=== PATIENT | male | born 1960 | race Caucasian/White ===

== ENCOUNTER 2018-06-26 09:46 | Inpatient (IN) | payer SELFPAY ==
[~2018-06-26] VITALS: Ht 188 cm; Wt 111.9 kg
[2018-06-26 10:05] LABS: Chloride (POC) 100 mmol/L (98-108); Creatinine (POC) 1.5 mg/dL (0.8-1.3); Glucose (ISTAT POC) 280 mg/dL (70-99); Potassium (POC) 3.1 mmol/L (3.5-5.5); Sodium (POC) 138 mmol/L (135-148); Total CO2 (POC) 25 mmol/L (21-32)
[2018-06-26 10:15] LABS: PCO2 Arterial 41.5 mmHg (35-45); PO2 Arterial 329 mmHg (80-100); pH Blood Arterial 7.08 (7.35-7.45)
[2018-06-26 11:09] LABS: BASOPHILS ABSOLUTE AUTO 0.06 K/mm3 (0.00-0.23); BASOPHILS PERCENT AUTO 1 % (0-2); EOSINOPHILS ABSOLUTE AUTO 0.09 K/mm3 (0.00-0.68); EOSINOPHILS PERCENT AUTO 1 % (0-6); Hematocrit 45.8 % (37.0-53.0); IMMATURE GRAN ABSOLUTE AUTO 0.31 K/mm3 (0.00-0.10); IMMATURE GRAN PERCENT AUTO 3 % (0-1); LYMPHOCYTES ABSOLUTE AUTO 2.28 K/mm3 (0.84-5.20); LYMPHOCYTES PERCENT AUTO 24 % (21-46); MONOCYTES ABSOLUTE AUTO 0.17 K/mm3 (0.16-1.47); MONOCYTES PERCENT AUTO 2 % (4-13); Mean Corpuscular HGB 30.4 pg (26.0-34.0); Mean Corpuscular HGB Conc 32.8 g/dL (31.5-36.5); Mean Corpuscular Volume 93 fL (80-100); Mean Platelet Volume 9.9 fL (9.1-12.4); NEUTROPHILS ABSOLUTE AUTO 6.68 K/mm3 (1.96-9.15); NEUTROPHILS PERCENT AUTO 70 % (41-73); Platelet Count 196 K/mm3 (150-400); RDW Coefficient Variation 11.8 % (11.7-14.2); RDW Standard Deviation 40.8 fL (35.1-46.3); Red Blood Cell Count 4.93 M/mm3 (4.30-5.90); White Blood Cell Count 9.59 K/mm3 (4.00-11.30)
[2018-06-26 11:29] LABS: Albumin/Globulin Ratio 0.9 (0.8-1.8); Bilirubin, Total 0.6 mg/dL (0.1-1.0); Bun/Creatinine Ratio 11.3 (12.0-20.0); Calcium, Blood 8.6 mg/dL (8.5-10.1); Creatinine, Blood 1.42 mg/dL (0.60-1.20); Globulin, Blood 3.2 g/dL (2.2-4.0); Potassium, Blood 3.4 mmol/L (3.5-5.5); Total Protein, Blood 6.2 g/dL (6.4-8.2); Troponin I 0.487 ng/mL (0.000-0.040)
[2018-06-26 12:21] LABS: International Normalized Ratio 1.05; Prothrombin Time Results 11.1 Sec (9.7-11.5)
--- NOTE | 2018-06-26 12:45 | NUR ---
ADMITTED TO ICU, ROOM 15, VIA GUERNEY; INTUBATED AND ON VENTILATOR. CPR DONE IN FIELD AT LEAST 1/2 HOUR PRIOR TO EMS ARRIVAL; DEFIBRILLATED IN ER X3; PER CODE BLUE PROTOCOLS/ACLS. MONITOR SHOWS IRREG RHYTHM; APPEARS SINUSE BUT MULTIPLE VENTRICULAR ECTOPY WITH EPISODES OF VTACH; SOMETIMES PULSELESS. SEE CODE BLUE SHEET (CALLED AT 1300); DR. STEINBERG PRESENT/ARRIVED; SEE SHEET FOR DETAILS OF MEDS/TX. 500CC FLUID BOLUS (NS) GIVEN AND THEN MAINT IV STARTED AT 75ML/HR. VENT. SETTINGS: A/C ?, TV 500, PEEP 5 AND FIO2 100%. BIOX LOW 70'S TO MID 80'S ON ARRIVAL TO ICU. MONITOR WITH RATE 90'S TO LOW 100'S; PATIENT'S RESP. WITH SEVERE STERNAL RETRACTIONS AND DIFF. TO GET SMOOTHE RHYTHM STRIPS. KEPT. DEFIB PADS IN PLACE FOR PRN USE. STOOL IN BED; CLEANED UP AND REPOSITIONED PATIENT. LUNGS WITH SCATTERED WHEEZES. SEE ER RECORDS, CODE BLUE RECORDS ETC. FOR SPECIFICS. OGT PLACED TO LIS; THICK-BROWN TO GREEN SECRETIONS; FLUSHED WITH 60CC WATER TO THIN OUT SECRETIONS. ACTIVE BOWEL TONES. HYPOTHERMIC BLANKET IN PLACE (HAS THERMAL ARRIAGA) SET TO KEEP BODY TEMP AT 36.0 DEGREES CELCIUS. BILAT. SOFT WRIST RESTRAINTS APPLIED TO PREVENT SELF EXTUBATION.
--- NOTE | 2018-06-26 13:15 | NUR ---
KCL 20MEQ IV HUNG. 1330-PORT. CXRAY DONE FOLLOWED BY EKG THEN ECHOCARDIOGRAM. LAB DRAWS IN BETWEEN ACTIVITY. CONTINUES WITH EPISODES OF VTACH; USUALLY PULSE FELT AND PATIENT CONVERTS ON OWN. OCCASIONALLY REQUIRES 150 SYNC/CARDIOVERSION TO RESUME NORMAL RHYTHM. TO RESTART AMIODARONE GTT AT 1MG/MIN.; SEE ORDERS.
[2018-06-26 13:47] LABS: Bun/Creatinine Ratio 12.3 (12.0-20.0); Calcium, Blood 8.5 mg/dL (8.5-10.1); Creatinine, Blood 1.38 mg/dL (0.60-1.20); Magnesium, Blood 2.3 mg/dL (1.6-2.4); Phosphorus, Blood 3.8 mg/dL (2.5-4.9); Potassium, Blood 3.5 mmol/L (3.5-5.5)
--- NOTE | 2018-06-26 14:10 | NUR ---
DR. STEINBERG INCREASED PATIENTS' EEP TO 8; DIFFICULT GETTING BIOX OVER 71% ON 100% OXYGEN. DR. STEINBERG PLACED L ANTERIOR CHEST TUBE; SEE PROCEDURE NOTE BY PHYSICIAN. PLEUROVAC SECURED TO FLOOR WITH FOAM TAPE. TO WALL SUCTION OF 50.
--- NOTE | 2018-06-26 14:28 | NUR ---
Spiritual care visit conduted. Patient's family is known to this investigative writer. I Received a call from Raymond Fernandes asking me to contact [employer] reinforcing iron and rebar workers and I reached out to family reinforcing iron and rebar workers and he stated that he would come immediately. I entered the ICU area and contacted the family who were sitting outside the patient's room waiting after a code blue was called. I facilitated a debriefing with a few family members to help them talk through the events that led up to patient's arrival at the hospital and learned about family unit complications, about patient's brother being diagnosised with cancer at the same time patient was on his way to the hospital and about family member's that are out of state and trying desperately to arrive here. I listened empathically, provided a calming presence and companionship. I remain available to the family.
[2018-06-26 14:38] LABS: BASOPHILS ABSOLUTE AUTO 0.05 K/mm3 (0.00-0.23); BASOPHILS PERCENT AUTO 0 % (0-2); EOSINOPHILS ABSOLUTE AUTO 0.02 K/mm3 (0.00-0.68); EOSINOPHILS PERCENT AUTO 0 % (0-6); Hematocrit 46.9 % (37.0-53.0); Hemoglobin 15.2 g/dL (13.5-17.5); IMMATURE GRAN ABSOLUTE AUTO 0.24 K/mm3 (0.00-0.10); IMMATURE GRAN PERCENT AUTO 1 % (0-1); LYMPHOCYTES ABSOLUTE AUTO 1.62 K/mm3 (0.84-5.20); LYMPHOCYTES PERCENT AUTO 8 % (21-46); MONOCYTES PERCENT AUTO 5 % (4-13); Mean Corpuscular HGB 30.6 pg (26.0-34.0); Mean Corpuscular HGB Conc 32.4 g/dL (31.5-36.5); Mean Corpuscular Volume 94 fL (80-100); Mean Platelet Volume 10.6 fL (9.1-12.4); NEUTROPHILS ABSOLUTE AUTO 16.77 K/mm3 (1.96-9.15); NEUTROPHILS PERCENT AUTO 86 % (41-73); Platelet Count 279 K/mm3 (150-400); RDW Standard Deviation 41.6 fL (35.1-46.3); Red Blood Cell Count 4.97 M/mm3 (4.30-5.90)
[2018-06-26 14:55] LABS: PCO2 Arterial 52.4 mmHg (35-45); PO2 Arterial 52.1 mmHg (80-100); pH Blood Arterial 7.14 (7.35-7.45)
[2018-06-26 15:12] LABS: International Normalized Ratio 1.21; Prothrombin Time Results 12.6 Sec (9.7-11.5)
[2018-06-26 16:23] LABS: PO2 Arterial 61.1 mmHg (80-100); pH Blood Arterial 7.16 (7.35-7.45)
[2018-06-26 18:11] LABS: Alanine Aminotransfer (ALT/SGP 68 U/L (12-78); Albumin, Blood 1.9 g/dL (3.4-5.0); Alk Phos 73 U/L (50-136); Anion Gap 10 mmol/L (6-16); Aspartate Aminotrans (AST/SGOT 122 U/L (12-37); Bilirubin, Total 0.6 mg/dL (0.1-1.0); Blood Urea Nitrogen 16 mg/dL (8-24); Bun/Creatinine Ratio 18.1 (12.0-20.0); CO2, Blood 14 mmol/L (21-32); Chloride, Blood 125 mmol/L (98-108); Creatinine, Blood 0.88 mg/dL (0.60-1.20); Globulin, Blood 1.9 g/dL (2.2-4.0); Glomerular Filtration Rate >60 (60-); Glucose, Blood 167 mg/dL (70-99); Potassium, Blood 3.5 mmol/L (3.5-5.5); Sodium, Blood 149 mmol/L (136-145)
[2018-06-26 18:15] LABS: Calcium, Blood 5.2 mg/dL (8.5-10.1); Total Protein, Blood 3.8 g/dL (6.4-8.2)
--- NOTE | 2018-06-26 18:45 | NUR ---
SUMMARY: DR. GU CONSULTED; SEE HIS NOTES FOR SPECIFICS. RN HAD GIVEN DILANTIN WELL KEPPRA IVPB'S AROUND 1330 TO 1400 (DR. STEINBERG HAD ORDERED AFTER FAMILY WITNESSED PATIENT SEIZE; RECEIVED 2MG IV ATIVAN, INITIALLY. DR. STEINBERG SPOKE TO DR. GU AND HE HAD HER ORDERER DILANITN AND KEPPRA TO BE GIVEN; HE ARRIVED ABOUT 1800. PUPILS ARE 3-4 (EQUAL) AT PRESENT AND DOLLS EYES WERE NOTED BY PHYSICIAN. PROPOFOL STARTED AT [address] STEINBERG; INITIATED AT 10MCG/KG/MIN.; INCREASED TO 20MCG/KG/MIN AT CHANGE OF SHIFT. DR. STEINBERG TRYING TO REDUCE OXYGEN CONSUMPTION AND RELAX PATIENT MORE. PROTONIX DRIP STARTED WELL 80MG DOSE IVP (SLOWLY). WILL REPORT TO ONCOMING NURSE AND TRANSFER CARE.
--- NOTE | 2018-06-26 19:30 | NUR ---
ASSUMED CARE PT REMAINS INTUBATED ON VENT AC26 VT 400-500S FIO2 100% PEEP 14. GTTS: PROPOFOL 20MCG/KG/MIN, AMIO 1MG/MIN, 0.9NS 75ML/HR, AND PROTONIX 8MG/HR. PT HAS LEFT ANTERIOR CHEST TUBE AND WAS PLACED TO SUCTION -20CM H20.
[2018-06-26 20:07] LABS: Dilantin (Phenytoin), Total 21.3 ug/mL (10.0-20.0)
--- NOTE | 2018-06-26 20:30 | NUR ---
VT PULSATILE VT NOTED ON MONITOR, DEFIB PADS REMAIN IN PLACE. SYNCHRONIZED CARDIOVERSION COMPLETED. STRIP ON CHART. SR RESUMED ON MONITOR. DR STEINBERG HERE AND AWARE.
--- NOTE | 2018-06-26 23:00 | NUR ---
CENTRAL LINE PLACEMENT DR. STEINBERG INSERTED CENTRAL LINE IN LEFT INTERNAL JUGULAR VEIN. DR. STEINBERG CONFIRMED PLACEMENT VIA CXR. LEVOPHED INCREASED TO 2MCG/MIN. SEE ICU FLOW SHEET FOR TITRATIONS AND MAPs.
--- NOTE | 2018-06-27 00:15 | NUR ---
TO CT PT TO CT WITH THIS RN, ORIENTING RN, AND RT.
--- NOTE | 2018-06-27 00:30 | NUR ---
RETURN FROM CT PT RETURNED FROM CT WITHOUT INCIDENT.
--- NOTE | 2018-06-27 02:03 | NUR ---
DR. STEINBERG PUT A CT MARYAN NOTED ADDITIONAL PNEUMOTHORAX. #2 CHEST TUBE INSERTED MEDIAL TO #1. #2 IS PUT TO -20 CM H2O SUCTION, POSITIVE AIR LEAK FOUND. #1 CHEST TUBE TO WATER SEAL.
[2018-06-27] MEDS ORDERED: AMIODARONE HCL100 MG PO (03:27)
[2018-06-27] MEDS ORDERED: LEVSOD150 PO (03:28)
[2018-06-27] MEDS ORDERED: CEFD300 PO (03:29)
[2018-06-27 05:12] LABS: Hematocrit 45.9 % (37.0-53.0); Hemoglobin 14.8 g/dL (13.5-17.5); Mean Corpuscular HGB 30.7 pg (26.0-34.0); Mean Corpuscular HGB Conc 32.2 g/dL (31.5-36.5); Mean Corpuscular Volume 95 fL (80-100); Mean Platelet Volume 10.1 fL (9.1-12.4); Platelet Count 213 K/mm3 (150-400); RDW Coefficient Variation 12.2 % (11.7-14.2); RDW Standard Deviation 42.6 fL (35.1-46.3); Red Blood Cell Count 4.82 M/mm3 (4.30-5.90); White Blood Cell Count 25.72 K/mm3 (4.00-11.30)
[2018-06-27 05:30] LABS: PCO2 Arterial 49.1 mmHg (35-45); PO2 Arterial 79.2 mmHg (80-100)
[2018-06-27 05:36] LABS: Free Thyroxine 0.96 ng/dL (0.70-1.60); Magnesium, Blood 2.2 mg/dL (1.6-2.4)
[2018-06-27 05:40] LABS: BAND PERCENT MAN 12 % (0-8); BASOPHILS PERCENT MAN 0 % (0-2); EOSINOPHILS PERCENT MAN 0 % (0-6); LYMPHOCYTES % ATYPICAL MANUAL 1 % (0-0); LYMPHOCYTES ABSOLUTE MAN 0.77 K/mm3 (0.84-5.20); LYMPHOCYTES PERCENT MAN 2 % (21-46); METAMYELOCYTE ABSOLUTE MAN 0.25 K/mm3 (0.00-0.00); METAMYELOCYTE PERCENT MAN 1 % (0-0); MONOCYTES ABSOLUTE MAN 1.54 K/mm3 (0.16-1.47); MONOCYTES PERCENT MAN 6 % (4-13); NEUTROPHILS ABSOLUTE MAN 23.14 K/mm3 (1.96-9.15); SEG NEUTROPHILS PERCENT MAN 78 % (41-73); TOTAL CELLS COUNTED 100
[2018-06-27 05:44] LABS: Thyroid Stimulating Hormone 0.943 uIU/mL (0.360-4.800); Triiodothyronine, Free 0.73 pg/mL (2.18-3.98)
[2018-06-27 06:24] LABS: pH Blood Arterial 7.03 (7.35-7.45)
--- NOTE | 2018-06-27 06:31 | NUR ---
SHIFT SUMMARY PT REMAINS INTUBATED ON VENT AC 26 VT 400 PEEP 16 FIO2 80%. CURRENT GTTS: AMIO 0.5MG/MIN, NIMBEX 0.5MCG/KG/MIN, PROTONIX 10ML/HR, SODIUM BICARBONATE 50ML/HR, LEVOPHED AT 7MCG/MIN, AND PROPOFOL 10MCG/KG/MIN. MAPs maintained above 65 since the start of Levophed. PT HAS CRITICAL LAB VALUES AT 0530 OF LACTATE 7.1, TROPONIN 16.8, AND PHOSPHORUS 8. NEDITA NOTIFIED. PT IS OLIGURIC WITH UOP OF 110ML, NEDITA AWARE. PT HAD AN EPISODE OF VT WITH PULSE AT 2030 CARDIOVERSION 50J X1 CONVERTED TO NSR. HAD PROBLEMS WITH MANUAL TTM MACHINE; RESORTED TO ICE PACKS AROUND 0620 TO KEEP PT AT GOAL OF 96.8F; CURRENTLY 95.5F. IS ABRIL AND WISHES TO BE INVOLVED IN ALL ASPECTS OF CARE. DAUGHTER'S NAME IS SHON.
[2018-06-27 06:54] LABS: Phosphorus, Blood 8.2 mg/dL (2.5-4.9)
--- NOTE | 2018-06-27 07:20 | NUR ---
ASSUMED CARE OF PATIENT; SEE ASSESSMENT CHARTING FOR DETAILS. FAMILY AT BEDSIDE; VERY SUPPORTIVE AND ATTENTIVE; VERY INQUISITIVE ON ALL CARE BEING GIVEN AND ASKING LOTS OF QUESTIONS ABOUT POC ETC. DR. STEINBERG CAME IN AT THIS TIME AND SPOKE TO SPOUSE AND DAUGHTER AND DISCUSSED POC. PATIENT REMAINS ON VENTILATOR WITH SETTINGS OF: A/C 26, TV 400, PEEP 16 AND FIO2 80%; BIOX. READINGS 99-100%; WILL DISCUSS WITH R.T. RE: TITRATING DOWN FIO2 T/O DAY, AARON. REMAINS WITH 2 ANT/ CHEST TUBES; # 1 TUBE (MORE LATERAL) TO PLEUROVAC SUCTION AND #2 (MORE MEDIAL AND DISTAL) TO PLEUOVAC AND WALL SUCTION; SCANT AMOUNT OF BLOODY DRAINAGE FROM #2 TUBE. NO FURTHER ISSUES WITH FLAIL CHEST BREATHING SINCE NIMBEX DRIP INITIATED LAST PM. PATIENT RIDING ON VENT. SETTINGS. LUNGS COARSE T/O; NO WHEEZES HEARD. ARRIAGA TO GRAVITY AND DRAINING SCANT AMOUNT OF LT. YELLOW URINE; RENAL FUNCTION MUCH REDUCED TODAY; SEE LABS. REMAINS ON BICARB DRIP AT 50ML/HR; PH WAS 7.1 THIS AM. REPEAT VBG AROUND 9 0R 10 AM. OGT CLAMPED; ACTIVE BOWEL TONES. NO FURTHER S/SX'S OF BLEEDING FROM RENAL/GI/ETT/STOOL ETC. H&H GOOD AND PLATELETS >200. SIGNIFICANT SWELLING TO R UPPER AND LOWER ARM/HAND; ELEVATE ON 2-[address]. [address] WHERE WEEPING NOTED. L ARM ALSO SWOLLEN BUT ONLY ABOUT 1+. TRACE BILAT. ANKLE EDEMA. CURRENT IV DRIPS: NIMBEX AT 0.5MG, PROPOFOL AT 10MCG/KG/MIN, AMIODARONE AT 0.5MG, LEVOPHED AT 7MCG/MIN, PROTONIX AT 10ML/HR, AND BICARB DRIP AT 50ML/HR. SCD'S INTACT AND FUNCTIONING.
[2018-06-27 08:26] LABS: Albumin, Blood 3.1 g/dL (3.4-5.0); Albumin/Globulin Ratio 0.9 (0.8-1.8); Bilirubin, Total 1.1 mg/dL (0.1-1.0); Bun/Creatinine Ratio 11.8 (12.0-20.0); Creatinine, Blood 2.79 mg/dL (0.60-1.20); Globulin, Blood 3.3 g/dL (2.2-4.0); Potassium, Blood 4.7 mmol/L (3.5-5.5)
[2018-06-27 08:33] LABS: Calcium, Blood 7.4 mg/dL (8.5-10.1); Total Protein, Blood 6.4 g/dL (6.4-8.2)
[2018-06-27 09:59] LABS: Base Excess Venous -18.7 mmol/L; PCO2 Venous 52.5 mmHg (38-42); PO2 Venous 72.1 mmHg (38-42)
--- NOTE | 2018-06-27 10:00 | NUR ---
VBG RESULTS SHOW PH OF 6.9; RN INFORMED DR. STEINBERG AND SHE GAVE VERBAL ORDER TO CONSULT DR. OVIEDO (NEPHROLOGY).
--- NOTE | 2018-06-27 10:05 | NUR ---
T/C TO DR. OVIEDO WITH CONSULT REQUEST; HE REQUESTED RN PUT PATIENT ON HIS LIST; RN DID INFORM PHYSICIAN THAT PATIENTS' PH 6.9 AND ON BICARB DRIP; NO ORDERS GIVEN.
--- NOTE | 2018-06-27 11:30 | NUR ---
DR. STEINBERG INCREASED A/C TO 34/MIN (WAS UP TO 26); TO HELP WITH PH BALANCE; HAD RN INCREASE BICARB TO 150/HR; SEE FURTHER ORDERS. NO ISSUES WITH ECTOPY; AMIODARONE REMAINS AT 0.5MCG/MIN.
[2018-06-27 12:20] LABS: Source, Urine Catheter
[2018-06-27 12:23] LABS: Bilirubin, Urine Neg (Neg); Blood, Urine 5+ (Neg); Glucose Qualitative, Urine 3+ (Neg); Ketones, Urine Neg (Neg); Leukocyte Esterase, Urine Neg (Neg); Nitrite, Urine Neg (Neg); Protein, Urine 3+ (Neg); Specific Gravity, Urine 1.015 (1.003-1.022); Urobilinogen, Urine NORM (Normal)
[2018-06-27 12:33] LABS: Appearance, Urine Clear (Clear)
[2018-06-27 12:34] LABS: Color, Urine Yellow (P-Yellow)
[2018-06-27 12:35] LABS: Red Blood Cells, Urine TNTC /hpf (0-2); White Blood Cells, Urine 0-2 /hpf (0-5)
[2018-06-27 12:36] LABS: Bacteria Few /hpf; Squamous Epithelial Cells Few /hpf (Few)
[2018-06-27 13:06] LABS: PCO2 Arterial 41.5 mmHg (35-45); PO2 Arterial 82.7 mmHg (80-100); pH Blood Arterial 7.09 (7.35-7.45)
[2018-06-27 13:30] LABS: Anion Gap 18 mmol/L (6-16); Blood Urea Nitrogen 38 mg/dL (8-24); Bun/Creatinine Ratio 11.7 (12.0-20.0); CO2, Blood 16 mmol/L (21-32); Calcium, Blood 7.3 mg/dL (8.5-10.1); Chloride, Blood 103 mmol/L (98-108); Creatinine, Blood 3.25 mg/dL (0.60-1.20); Glomerular Filtration Rate 21 (60-); Glucose, Blood 499 mg/dL (70-99); Sodium, Blood 137 mmol/L (136-145)
--- NOTE | 2018-06-27 13:30 | NUR ---
BICARB DRIP UP TO 250/HR AND 2AMPS BICARB GIVEN IVP; SEE FURTHER ORDERS FROM DR. OVIEDO.
[2018-06-27 13:43] LABS: Phosphorus, Blood 8.1 mg/dL (2.5-4.9)
--- NOTE | 2018-06-27 15:56 | NUR ---
T/C FROM DR. GU INSTRUCTING TO TURN OFF NIMBEX DRIP AND LEVOPHED DRIP SO HE CAN EVAL. NEURO STATUS; DONE. SBP DOWN TO 83/52 AND MAP 60; LEVOPHED DRIP INCREASED TO 4MCG/MIN.
--- NOTE | 2018-06-27 16:15 | NUR ---
DR. GU HERE; NEURO EVAL. DONE; PATIENT OFF SEDATION AND PARALYTIC OVER 20/MIN; NO CORNEAL REFLEX; PUPILS RESPONSIVE.
--- NOTE | 2018-06-27 16:55 | NUR ---
PATIENT OPENING EYES; BLINKING; DR. GU RE-EVAL. AND CORNEAL REFLEX INTACT. DR. STEINBERG WANTS RN TO KEEP NIMBEX AND PROPOFOL DRIPS OFF AND USE PRN.
--- NOTE | 2018-06-27 17:22 | NUR ---
PATIENTS CHEST FLAILING AND BIOX. STARTING TO REDUCE. FENTANYL 50CMG GIVEN IVT AND PROPOFOL DRIP RESTARTED (WENT FROM 15MCG UP TO 50MCG IN ABOUT 40/MIN).
[2018-06-27 17:32] LABS: Base Excess Venous -10.6 mmol/L; Bicarbonate Venous 16.4 mmol/L (24.0-30.0); PO2 Venous 110 mmHg (38-42)
[2018-06-27 17:33] LABS: pH Blood Venous 7.21 (7.34-7.37)
[2018-06-27 18:01] LABS: Albumin, Blood 2.5 g/dL (3.4-5.0); Bilirubin, Total 0.7 mg/dL (0.1-1.0); Bun/Creatinine Ratio 11.1 (12.0-20.0); Calcium, Blood 6.5 mg/dL (8.5-10.1); Creatinine, Blood 3.7 mg/dL (0.60-1.20); Globulin, Blood 2.5 g/dL (2.2-4.0); Potassium, Blood 4.3 mmol/L (3.5-5.5)
--- NOTE | 2018-06-27 18:15 | NUR ---
LABS CALLED TO DR. OVIEDO AND ORDER TO REDUCE NAHCO3 DRIP TO 150/HR; REPEAT LABS AT 2100 (SEE ORDERS). PROPOFOL DRIP REDUCED TO 40MCG/KG/MIN.
--- NOTE | 2018-06-27 18:30 | NUR ---
PROPOFOL DRIP REDUCED TO 30MCG/KG/MIN AND LEVOPHED DRIP UP TO 6MCG/MIN. PATIENT CALMER BUT HYPOTENSIVE.
--- NOTE | 2018-06-27 19:00 | NUR ---
SUMMARY: CURRENT DRIP SETTINGS: NIMBEX OFF, PROTONIX DC'D, AMIODARONE AT 0.5MCG/HR., LEVOPHED UP TO 7MCG/KG/MIN,, BICARB DRIP DOWN TO 150ML/HR. INSULIN DRIP TO START D/T GLUCOSE OVER 500; SEE ORDERS FROM DR. STEINBERG. PATENT EXAMINER TO INITIATE DRIP. RN GAVE 16U REGULAR INSULIN SUBQ FOR HIGH SS COVERAGE ABOUT AN HOUR AGO. URINE OUTPUT < 75ML THIS PAST 12 HRS AND CREAT UP TO 3+; DR. OVIEDO MANAGING PH/KIDNEYS ETC. RENAL U/S DONE AT 1715. VENT SETTINGS: RATE 34, TV 400,PEEP 16 AND FIO2 60%. WILL REPORT TO ONCOMING RN.
--- NOTE | 2018-06-27 19:55 | NUR ---
ASSUMED CARE PT REMAINS INTUBATED ON VENT AC34, PEEP 16, FIO2 60%, VT400. GTTS: AMIO 0.5MG/HR, PROPOFOL 30MCG/MIN, BICARBONATE 150ML/HR, LEVOPHED 10MCG/MIN, AND STARTED INSULIN AT 3UNITS/HR. DISCUSSING TYELNOL ORDER FOR TEMP AND IF NIMBEX OKAY TO USE LATER IF FLAIL CHEST AND DESATURATION OCCURS WITH DR. STEINBERG. PLAN IS TO KEEP PT SEDATED AND RESTED UNTIL SEDATION VECATION IN THE MORNING.
[2018-06-27 20:13] LABS: Glucose, Blood 557 mg/dL (70-99)
[2018-06-27 22:13] LABS: Bun/Creatinine Ratio 10.9 (12.0-20.0); Calcium, Blood 6.4 mg/dL (8.5-10.1); Creatinine, Blood 4.22 mg/dL (0.60-1.20); Potassium, Blood 4.1 mmol/L (3.5-5.5)
--- NOTE | 2018-06-28 01:31 | NUR ---
UPDATE-PT'S EXPRESSING ANXIETY PT'S APPEARS FRUSTRATED WITH CARE AND ASKING IF PT WOULD BENEFIT FROM TRANSPORT TO [place]. WORRIED ABOUT PT'S RENAL FUNCTION AND LOW UOP AND WANTS PT TO HAVE DIALYSIS ALANNA. ABRIL ALSO HAS CONCERNS THAT CARDIOLOGY HAS SIGNED OFF BUT FEELS PT WILL NEED ADDITIONAL CARDIOLOGY FOLLOW UP. DISCUSSED PT STABILITY, OBTAINING AN ACCEPTING PHYSICIAN WITH [facility]. ADVISED HER TO FOLLOW UP WITH DR STEINBERG IN AM TO EXPRESS HER CONCERNS.
[2018-06-28 03:33] LABS: Hematocrit 35.8 % (37.0-53.0); Hemoglobin 12.2 g/dL (13.5-17.5); Mean Corpuscular HGB 30.2 pg (26.0-34.0); Mean Corpuscular HGB Conc 34.1 g/dL (31.5-36.5); Platelet Count 144 K/mm3 (150-400); RDW Coefficient Variation 12.4 % (11.7-14.2); RDW Standard Deviation 40.4 fL (35.1-46.3); Red Blood Cell Count 4.04 M/mm3 (4.30-5.90); White Blood Cell Count 22.78 K/mm3 (4.00-11.30)
[2018-06-28 03:34] LABS: Mean Corpuscular Volume 89 fL (80-100)
[2018-06-28 03:47] LABS: International Normalized Ratio 1.2; Prothrombin Time Results 12.5 Sec (9.7-11.5)
[2018-06-28 03:51] LABS: BAND PERCENT MAN 18 % (0-8); BASOPHILS PERCENT MAN 0 % (0-2); EOSINOPHILS PERCENT MAN 0 % (0-6); LYMPHOCYTES ABSOLUTE MAN 0.68 K/mm3 (0.84-5.20); LYMPHOCYTES PERCENT MAN 3 % (21-46); MONOCYTES ABSOLUTE MAN 0.68 K/mm3 (0.16-1.47); MONOCYTES PERCENT MAN 3 % (4-13); NEUTROPHILS ABSOLUTE MAN 21.41 K/mm3 (1.96-9.15); SEG NEUTROPHILS PERCENT MAN 76 % (41-73); TOTAL CELLS COUNTED 100
[2018-06-28 03:54] LABS: Alanine Aminotransfer (ALT/SGP 408 U/L (12-78); Albumin, Blood 2.5 g/dL (3.4-5.0); Albumin/Globulin Ratio 0.9 (0.8-1.8); Alk Phos 69 U/L (50-136); Anion Gap 17 mmol/L (6-16); Aspartate Aminotrans (AST/SGOT 521 U/L (12-37); Bilirubin, Total 0.7 mg/dL (0.1-1.0); Blood Urea Nitrogen 51 mg/dL (8-24); Bun/Creatinine Ratio 10.6 (12.0-20.0); CO2, Blood 23 mmol/L (21-32); Calcium, Blood 6.6 mg/dL (8.5-10.1); Chloride, Blood 94 mmol/L (98-108); Globulin, Blood 2.9 g/dL (2.2-4.0); Glomerular Filtration Rate 13 (60-); Glucose, Blood 348 mg/dL (70-99); Magnesium, Blood 1.7 mg/dL (1.6-2.4); Potassium, Blood 3.8 mmol/L (3.5-5.5); Sodium, Blood 134 mmol/L (136-145); Total Protein, Blood 5.4 g/dL (6.4-8.2)
[2018-06-28 03:59] LABS: Phosphorus, Blood 4.2 mg/dL (2.5-4.9)
[2018-06-28 04:41] LABS: PCO2 Arterial 45.2 mmHg (35-45); PO2 Arterial 98.1 mmHg (80-100); pH Blood Arterial 7.35 (7.35-7.45)
--- NOTE | 2018-06-28 06:06 | NUR ---
SHIFT SUMMARY PT REMAINS INTUBATED AND CURRENTLY ON VENT AC 34, VT 400S, PEEP 16, FIO2 90%. CURRENT GTTS: AMIO 0.5 MG/HR, INSULIN 4 UNITS/HR, NIMBEX 0.5MCG/KG/MIN, PROPOFOL 15 MCG/MIN, BICARBONATE 75 ML/HR, AND LEVOPHED 15 MCG/MIN. PT WAS RESTARTED ON NIMBEX DUE TO INCREASED PARADOXICAL CHEST WALL MOVEMENT AND DROP IN O2 SATS, FIO2 WAS INCREASED TO 100% INITIALLY. BLOOD SUGARS HIGH (500) AND INSULIN DRIP STARTED; LAST CBG WAS 350s. PREET CALLED, UPDATED ON LABS AND 25ML UOP FOR SHIFT. TUBE FEED AT GOAL 20ML/HRL, RESIDUALS HAVE BEEN <15ML.
--- NOTE | 2018-06-28 07:30 | NUR ---
ASSUMED CARE OF PATIENT; SEE ASSESSMENT CHARTING FOR DETAILS. PATIENT REMAINS ON VENTILATOR WITH SEDATION OF PROPOFOL GTT AT 15MCG/KG/MIN AND PARALYTIC OF NIMBEX AT 0.5MCG/KG/MIN.; RIKERS SCALE 1. PUPILS EQUAL AT 3MM AND REACTIVE. VENT. SETTINGS: A/C 34, TV 400, PEEP 16 AND FIO2 90%. NO SPONT. RESP. AT THIS TIME. LUNGS APPEAR CLEAR BUT DIMINISHED IN BASES. TRACE TO 1+ EDEMA TO ANKLES AND 2-3 + EDEMA TO LUE AND 3+ EDEMA TO RUE WITH SOME WEEPING FROM IV POKES, ETC. EXTREM. ELEVATED ON PILLOWS. OGT INFUSING WITH VITAL HIGH PROTEIN AT 20ML/HR WITH H20 FLUSHES OF 30ML EVERY 4HOURS. MONITOR REMAINS NSR WITH RATE 60'S TO 70'S; NO ARRYTHMIAS NOTED; REMAINS ON AMIODARONE GTT AT 0.5MCG/HR. LEVOPHED DRIP AT 15MCG/MIN WILL REDUCE TO 12MCG/MIN. ARRIAGA WITH VERY SCANT URINE OUTPUT. DR. GU (NEUROLOGIST) TO ARRIVE AROUND 10AM AND WANTS ALL SEDATION AND PARALYTIC TURNED OFF AT 0910.
--- NOTE | 2018-06-28 09:25 | NUR ---
PROPOFOL DRIP AND NIMBEX GTT TURNED OFF (ON STANDBY); WILL MEDICATE WITH FENTANYL IF PATIENT BEGINS HIGH PRESSURING VENT. OR CHEST FLAILING BECOMES INCREASED.
--- NOTE | 2018-06-28 09:30 | NUR ---
DR. STEINBERG HERE AND SPOKE WITH FAMILY AND ASSESSED PATIENT.
--- NOTE | 2018-06-28 09:45 | NUR ---
FENTANYL 50MCG GIVEN IVT FOR INCREASED CHEST FLAILING AND OXYGENATION DROPPING; AWAITING DR. GU TO EVAL. NEURO. EYES CURRENTLY OPENED AND PATIENT APPEARS PAINFUL.
--- NOTE | 2018-06-28 09:50 | NUR ---
DR. MITCHELL (HOSP.) HERE AND SPOKE WITH FAMILY.
--- NOTE | 2018-06-28 10:20 | NUR ---
T/C TO DR. GU; HE IS ON HIS WAY AND TO ARRIVE IN 5-10/MIN.
--- NOTE | 2018-06-28 10:30 | NUR ---
DR. GU HERE AND DID EVAL. PATIENT WAS MOVING ALL EXTREM. TO SOME DEGREE; REMAINS WITH CORNEAL AND COUGH REFLEXES. PHYSICIAN SPOKE WITH FAMILY; EEG ORDERED FOR TOMORROW.
--- NOTE | 2018-06-28 14:00 | NUR ---
NO ACUTE CHANGES; SOME DECCORTICOID TYPE POSTURINE (ARMS) EXHIBITED EARLIER; NO SEIZURE ACTIVITY NOTED. FAMILY REMAINS AT BEDSIDE AND VERY ATTENTIVE; LOTS OF QUESTIONS AND EMOTIONAL BUT COOPERATIVE WITH STAFF.
[2018-06-28 17:18] LABS: Bun/Creatinine Ratio 10.5 (12.0-20.0); Calcium, Blood 6.6 mg/dL (8.5-10.1); Creatinine, Blood 5.79 mg/dL (0.60-1.20); Potassium, Blood 3.9 mmol/L (3.5-5.5)
--- NOTE | 2018-06-28 18:15 | NUR ---
T/C TO DR. OVIEDO WITH LAB RESULTS AND OVERALL I/O STATUS. SEE ORDERS.
--- NOTE | 2018-06-28 18:30 | NUR ---
SUMMARY: CURRENT DRIP SETTINGS ARE: PROPOFOL AT 15MCG/KG/MIN, LEVOPHED AT 6MCG/MIN, AMIODARONE AT 0.5MG/HR, NIMBEX DRIP AT 0.75 MCG/KG/MIN., INSULIN DRIP AT 4U/HR AND NAHCO3 DRIP AT 75ML/HR. SEE CRITICAL FLOW SHEET FOR ADJUSTMENTS T/O DAY. CBG READINGS CHANGED TO Q 2HR D/T STABILITY; DR. STEINBERG WANTS READING FROM 150-200. FENTANYL 50MCG SEVERAL TIMES T/O DAY TO HELP WITH GENERALIZED DISCOMFORT. TYELENOL 650MG VIG OGT FOR FEVER OF 100.8; READING STAYING I00.4 TO 100.8; FAN RUNNING IN ROOM; SHEET ON PATIENT; ROOM TEMP CLEAR DOWN. FAMILY BROUGHT TENNIS SHOES AND SOCKS TO PUT ON PATIENT TO PREVENT FOOT DROP. TO HAVE EEG READING TOMORROW; NIGHT NURSE WILL WASH PATIENTS HAIR. PATIENT ALMOST 10,000 CC POSITIVE; ONLY 25CC URINE OUT (LT YELLOW); BUMEX TO BE GIVEN. FI02 TITRATED DOWN TO 60% T/O DAY. WILL REPORT TO ONCOMING RN.
--- NOTE | 2018-06-28 19:10 | NUR ---
ASSUMED CARE OF PT, BEDSIDE REPORT RECEIVED. PT IS SEDATED AND INTUBATED, NIMBEX GTT AT 0.75 MCG/KG/MIN, PROPOFOL AT 20 MCG/KG/MIN, VENT SETTINGS AC 34, TV 400, FIO2 60%, PEEP 16, LUNGS CLEAR THROUGHOUT WITH DIM BASES BILAT, SATS 96-97% AT THIS TIME, CHEST TUBES NOTED TO LEFT ANTERIOR CHEST WALL, SMALL AMOUNT OF SANGUINOUS DRAINAGE FROM UNDER DRESSING, WILL CLEANSE AND REINFORCE, CONFIRMED WITH DR STEINBERG CHEST TUBE TO WATER SEAL AND CHEST TUBE TO 20 CM PLEUROVAC SUCTION, NO SUBCUTANEOUS EMPHYSEMA PALPABLE AT THIS TIME, ETT 8.0 NOTED 25 CM AT LIP, 24 CM AT TEETH. HRR, BBB NOTED ON MONITOR, LONG QT NOTED ON MONITOR, SINUS RHYTHM WITH RARE PVCS, DEFIB/PACER PADS ARE IN PLACE WITH DEFIBRILLATOR AT BEDSIDE PER MD, AMIODARONE GTT AT 0.5 MG/MIN, LEVOPHED GTT AT 6 MCG/MIN VIA QUAD LUMEN CENTRAL LINE TO LEFT IJ, DRESSING IS CDI. MULTIPLE FAMILY MEMBERS AT BEDSIDE, VERY CONCERNED AND INVOLVED IN PT CARE. OG IN PLACE, CONT FEEDS VIA [place] PUMP, VITAL HIGH PROTEIN AT GOAL OF 25 ML/HR AND 30 ML WATER FLUSH EVERY 4 HOURS, RESIDUAL AT THIS TIME IS [address], VERY LOW URINE OUTPUT ON DAY SHIFT, MD AWARE, ORDERS IN PLACE FOR BUMEX 4 MG IV AND ALBUMIN 25 GM IV, WILL ATTEMPT ADDITIONAL IV ACCESS SECONDARY TO IV INCOMPATIBILITIES WITH CURRENT INFUSIONS. PLAN TO TURN EVERY 2 HOURS, MAINTAIN PAIN CONTROL WITH ORDERED FENTANYL, MAINTAIN SEDATION, PLACE BIS MONITOR IN ORDER TO ENSURE ADEQUATE SEDATION, TITRATE LEVOPHED PER ORDERS
--- NOTE | 2018-06-28 23:35 | NUR ---
TRAIN OF 4 DONE, NO RESPONSE WITH ULNAR NERVE ASSESSMENT, LEFT FACIAL NERVE WITH 4 STRONG FACIAL TWITCHES TO 4 IMPULSES. NIMBEX GTT INCREASED TO 1 MCG/KG/MIN WILL MONITOR.
--- NOTE | 2018-06-29 00:30 | NUR ---
BIS MONITOR PLACED, PT SEDATION LEVEL MEASURES 44-47 AT THIS TIME, WILL MONITOR. CONTINUES WITH 4 RESPONSES TO 4 IMPULSES ON TRAIN OF 4 MONITORING HOWEVER PT RESP SYNCHRONOUS WITH VENT AT THIS TIME, WILL MONITOR.
[2018-06-29 03:30] LABS: Base Excess Venous 2.8 mmol/L; Bicarbonate Venous 27.2 mmol/L (24.0-30.0); PCO2 Venous 27.3 mmHg (38-42); PO2 Venous 44.6 mmHg (38-42); pH Blood Venous 7.57 (7.34-7.37)
[2018-06-29 04:20] LABS: BASOPHILS ABSOLUTE AUTO 0.02 K/mm3 (0.00-0.23); BASOPHILS PERCENT AUTO 0 % (0-2); EOSINOPHILS PERCENT AUTO 0 % (0-6); Hematocrit 28.7 % (37.0-53.0); Hemoglobin 9.9 g/dL (13.5-17.5); IMMATURE GRAN PERCENT AUTO 5 % (0-1); LYMPHOCYTES ABSOLUTE AUTO 0.75 K/mm3 (0.84-5.20); LYMPHOCYTES PERCENT AUTO 5 % (21-46); MONOCYTES ABSOLUTE AUTO 0.92 K/mm3 (0.16-1.47); MONOCYTES PERCENT AUTO 6 % (4-13); Mean Corpuscular HGB 30.3 pg (26.0-34.0); Mean Corpuscular HGB Conc 34.5 g/dL (31.5-36.5); Mean Corpuscular Volume 88 fL (80-100); Mean Platelet Volume 11.6 fL (9.1-12.4); NEUTROPHILS ABSOLUTE AUTO 12.62 K/mm3 (1.96-9.15); NEUTROPHILS PERCENT AUTO 84 % (41-73); Platelet Count 113 K/mm3 (150-400); RDW Coefficient Variation 12.5 % (11.7-14.2); RDW Standard Deviation 40.5 fL (35.1-46.3); Red Blood Cell Count 3.27 M/mm3 (4.30-5.90); White Blood Cell Count 15.11 K/mm3 (4.00-11.30)
[2018-06-29 04:45] LABS: Alanine Aminotransfer (ALT/SGP 332 U/L (12-78); Albumin, Blood 2.6 g/dL (3.4-5.0); Alk Phos 62 U/L (50-136); Anion Gap 17 mmol/L (6-16); Aspartate Aminotrans (AST/SGOT 282 U/L (12-37); Bilirubin, Direct 0.2 mg/dL (0.0-0.3); Bilirubin, Indirect 0.4 mg/dL (0.1-0.7); Bilirubin, Total 0.6 mg/dL (0.1-1.0); Blood Urea Nitrogen 69 mg/dL (8-24); Bun/Creatinine Ratio 10.3 (12.0-20.0); CO2, Blood 24 mmol/L (21-32); Calcium, Blood 6.4 mg/dL (8.5-10.1); Chloride, Blood 88 mmol/L (98-108); Creatinine, Blood 6.72 mg/dL (0.60-1.20); Globulin, Blood 2.7 g/dL (2.2-4.0); Glomerular Filtration Rate 9 (60-); Glucose, Blood 154 mg/dL (70-99); Magnesium, Blood 1.7 mg/dL (1.6-2.4); Phosphorus, Blood 3.3 mg/dL (2.5-4.9); Potassium, Blood 4.2 mmol/L (3.5-5.5); Sodium, Blood 129 mmol/L (136-145); Total Protein, Blood 5.3 g/dL (6.4-8.2)
--- NOTE | 2018-06-29 05:07 | NUR ---
BICARB GTT DC'D PER ORDERS
--- NOTE | 2018-06-29 06:47 | NUR ---
RAILROAD ACCOUNTANT ARRIVES AT ROOM FOR EEG SET UP, NIMBEX AND PROPOFOL TO STANDBY. WAS ABLE TO TITRATE LEVEOPHED DOWN TO 3 MCG/MIN THIS SHIFT FROM 6 MCG/MIN, BP IS MAINTAINING AT THIS TIME, PROPOFOL INCREASED TO 20 MCG/KG/MIN AT 0030 SECONDARY TO BIS INCREASE TO OVER 80 WITH ORAL CARE, WAS NOTED TO CONTINUE MID 80S FOR SEVERAL MINUTES FOLLOWING COMPLETION OF ORAL CARE, SEDATION IMPROVED WITHIN 10 MINUTES OF TITRATION. INSULIN GTT TITRATED DOWN TO 2 UNITS/HR. DR OVIEDO IN TO SEE PT THIS AM, ORDERED BUMEX 5 MG IV, ALBUMIN 25 GRAMS, AND METOLAZONE ADMIN, REPORT TO DAY SHIFT RN THAT IF PT URINE OUTPUT HAS NOT GREATLY IMPROVED BY 1000 THIS AM, DR OVIEDO REQUESTS TO BE CALLED AND PLANS TO PREPARE PT FOR DIALYSIS.
--- NOTE | 2018-06-29 07:21 | NUR ---
ASSUMED CARE REPORT FROM CHUN TA RN. AND DAUGHTER AT BEDSIDE. 2ND DAUGHTER ARRIVED. EEG BEING STARTED. PROPOFOL AND NIMBEX HAVE BEEN STOPPED FOR EEG. FIO2 UP TO 100% FOR DROP IN BIOX WHILE SEDATION OFF. REC'D FENTANYL 50 MCG IV
--- NOTE | 2018-06-29 08:26 | NUR ---
MD VISIT DR. SILVIANO JOHNSTON IN. NO NEW ORDERS
--- NOTE | 2018-06-29 11:46 | NUR ---
Spiritual care visit conducted. I contacted patient's family in the [facility]. I introduced myself and met several family members. The family members except patient's Ely left and so I had a lengthy conversation with Ely. Ely shared about her concerns about gathering all the information before making any decisions and about the cornelio she felt for the improvement in the patient's condition over the last several days. I listened empathically, conducted a debriefling centered around the medical events, facilitated a life review, provided pastoral baby counselor and prayer. Ely responded well to all interventions and displayed evidence of restored kayleen. She thanked me for my time and care.
--- NOTE | 2018-06-29 14:06 | NUR ---
SUMMARY: REPORTED 30 CC URINE OUT PUT TO DR. OVIEDO AT 1000. ORDERS FOR DIALYSIS CATH PLACEMENT AND DIALYSIS. DR. COLEMAN OBTAINED CONSENT FROM AND PLACED 12 FR DIALYSIS CATHETER USING STERILE TECHNIQUES FROM [id number]. CONFIRMED WITH CXR AFTER ADVANCEMENT OF ETT AND OGT. PROCESS CONTROL SUPERVISOR IN AND CHANGED TUBE FEED ORDERS. CHEST TUBE PLACED TO WATER SEAL PER DR. COLEMAN ORDER.
--- NOTE | 2018-06-29 16:48 | NUR ---
DR. GU STOPPED IN. ORDERS TO TURN OFF NIMBEX AND PROPOFOL. WILL RETURN IN 40 MINUTES TO ASSESS THE PATIENT. FAMILY REQUESTS PAIN MED, HOWEVER DR. GU WANTS IT HELD
--- NOTE | 2018-06-29 18:16 | NUR ---
NEURO EXAM BY DR. GU WHILE FAMILY AT BEDSIDE. STATISTICS FOR RECOVERY GIVEN. CT OF HEAD WO CONTRAST ORDERED. TOMORROW AM OK. PROPOFOL AT 30 MCG/KG/MIN NIMBEX AT 1.5 MCG/KG/MIN, FIO2 AT 100% FOR BIOX 90%
--- NOTE | 2018-06-29 18:38 | NUR ---
CALLED DR. COLEMAN WITH PATIENT UPDATE. FIO2 AT 100%. SATS 89 - 90% READ CXR RESULTS. ORDERS FOR ZOSYN AND VANCO AND DC CEFTRIAXONE
--- NOTE | 2018-06-29 19:25 | NUR ---
ASSUMED CARE OF PT, BEDSIDE REPORT RECEIVED. PT IS SEDATED AND INTUBATED, NIMBEX GTT CONTINUES, RATE 1.5 MCG/KG/MIN, PROPOFOL AT 30 MCG/KG/MIN, VENT SETTINGS AC 20, PEEP 16, FIO2 100, SATS MID 90S, LUNGS WITH COARSE CRACKLES RIGHT MID LOBE, OTHERWISE DIM/CLEAR THROUGHOUT, CHEST TUBES CONTINUE IN PLACE NOTED BOTH ARE NOW TO WATER SEAL, NO SUBCUTANEOUS EMPHYSEMA PALPABLE AT DRESSINGS. HRR, SINUS ON MONITOR WITH IVCD, NO PVCS ARE NOTE AT THIS TIME, PRESSURE MAINTAINING WITH LEVOPHED ON STANDBY, EXTREMITIES ARE NOTED WARM AND PINK, EDEMA CONTINUES. OG REMAINS IN PLACE TUBE FEEDS PIVOT 1.5 AT 25 ML/HR GOAL RATE OF 30 ML/HR, INCREASED AT THIS TIME, RESIDUAL LESS THAN 10 ML, ABD DISTENDED AND FIRM, NORMOACTIVE BOWEL TONES ARE NOTED. ARRIAGA CATH CONTINUES IN PLACE, MINIMAL URINE OUTPUT CONTINUES, PLASTIC SEWER AT BEDSIDE FOR HD TONIGHT, DIALYSIS ACCESS IS NOTED TO RIGHT IJ, DRESSING CDI.
--- NOTE | 2018-06-29 19:41 | NUR ---
KETTY HERE FOR DIALYSIS. LABS WILL BE DRAWN 2 HOURS AFTER BECAUSE DIALYSIS WILL SKEW RESULTS PER OUSMANE HDEZ. REPORT GIVEN TO CHUN TA RN
[2018-06-30 00:33] LABS: Hemoglobin 10.3 g/dL (13.5-17.5)
[2018-06-30 00:55] LABS: Magnesium, Blood 1.9 mg/dL (1.6-2.4)
[2018-06-30 01:00] LABS: Bun/Creatinine Ratio 9.9 (12.0-20.0); Calcium, Blood 6.3 mg/dL (8.5-10.1); Creatinine, Blood 6.79 mg/dL (0.60-1.20); Potassium, Blood 5.2 mmol/L (3.5-5.5); Troponin I 1.11 ng/mL (0.000-0.040)
[2018-06-30 01:01] LABS: Phosphorus, Blood 6.6 mg/dL (2.5-4.9)
--- NOTE | 2018-06-30 04:25 | NUR ---
TO CT VIA BED WITH RT, PT [employer]KER, AND THIS RN, SPOUSE DIRECTED TO ICU WAITING ROOM DURING IMAGING STUDY.
--- NOTE | 2018-06-30 04:55 | NUR ---
RETURNS TO ROOM AFTER CT COMPLETED.
[2018-06-30 06:41] LABS: Hematocrit 29.4 % (37.0-53.0); Hemoglobin 9.8 g/dL (13.5-17.5)
[2018-06-30 06:55] LABS: Magnesium, Blood 1.9 mg/dL (1.6-2.4)
[2018-06-30 06:57] LABS: Albumin, Blood 2.9 g/dL (3.4-5.0); Anion Gap 16 mmol/L (6-16); Blood Urea Nitrogen 74 mg/dL (8-24); Bun/Creatinine Ratio 9.7 (12.0-20.0); CO2, Blood 25 mmol/L (21-32); Calcium, Blood 6.2 mg/dL (8.5-10.1); Chloride, Blood 87 mmol/L (98-108); Creatinine, Blood 7.59 mg/dL (0.60-1.20); Glomerular Filtration Rate 8 (60-); Glucose, Blood 181 mg/dL (70-99); Phosphorus, Blood 5.4 mg/dL (2.5-4.9); Potassium, Blood 5.6 mmol/L (3.5-5.5); Sodium, Blood 128 mmol/L (136-145)
--- NOTE | 2018-06-30 07:30 | NUR ---
ASSUMED CARE BEDSIDE REPORT FORM CHUN RN PT. REMAINS INTUBATED AND SEDATED WITH PROPOFOL AT 10MCG/KG/MIN AND NIMBEX AT 1MCG/KG/MIN. LEVOPHED GTT CURRENTLY INFUSING AT 10MCG/KG/MIN WITH HYPOTENSION NOTED. PT. AND DAUGHTER REMAIN AT BEDSIDE THIS MORNING. BIS MONITOR IN PLACE. TRAIN OF FOUR /4 THIS AM. PT. CURRENTLY ON VENT WITH AC 20, 400, 95%, PEEP 16. PT RR IN THE 30S. PT. PUPILS BRISK REACTIVE TO LIGHT HOWEVER EYES FIXED FORWARD WITH HEAD MOVEMENT. BRUISNG NOTED T/O CHEST. [address] TO LEFT CHEST WALL; CURRENTLY TO WATER SEAL. NO CREPITUS NOTED AT THIS TIME. PT. HAS NO GAG WITH ORAL SUCTIONING. PT. HAS ARRIAGA IN PLACE DRAINING TO GRAVITY. TF RUNNING AT GOAL OF 30ML/HR WITH MINIMAL RESIDUAL THIS AM. NOTIFIED OF INCREASING LEVOPHED FOR BP.
--- NOTE | 2018-06-30 07:39 | NUR ---
PT CONTINUES SEDATED AND INTUBATED, NIMBEX AT 1 MCG/KG/MIN BIS MONITOR PLACED READINGS WERE 0-10 WITH NIMBEX AT 1.5 MCG/KG/MIN AND PROPOFOL AT 30 MCG/KGMIN, WAS ABLE TO TITRATE NIMBEX DOWN TO 0.5 MCG/KG/MIN AND PROPOFOL DOWN TO 5 MCG/KG/MIN FOR A BRIEF PERIOD THIS SHIFT, SEE ICU FLOW SHEET FOR TIMES, PT TOLERATED WELL AND MAINTAINED SATS WITHOUT ASYNCHRONOUS RESPIRATIONS UNTIL TURNED TO RIGHT SIDE WITH BEDBATH AT WHICH TIME, PT SATS DECREASED, INCREASED ASYNCHRONOUS RESPIRATOUNS WERE NOTED AND BIS MONITOR INCREASED TO 60, PT WAS MEDICATED FOR PAIN WITH FENTANYL 50 MCG AND NIMBEX AND PROPOFOL WERE TITRATED TO EFFECT, TRAIN OF 4 THROUGHOUT THIS SHIFT HAS BEEN 4 TWITCHES FOR 4 IMPULSES AT RIGHT FACIAL NERVE, CONTINUES WITHOUT RESPONSE AT ULNAR NERVE HOWEVER BILATERAL FOREARMS CONTINUE EDEMATOUS. PT CONTINUES TO NOT WITHDRAW FROM NOXIOUS STIMULI WITH NIMBEX AND PROPOFOL DECREASED HOWEVER RESP RATE DOES INCREASE TO NEAR 30 AND SLIGHT TWITCHING OF RIGHT EYELID WAS NOTED, NO SPONTANEOUS MOVEMENT OR EYE OPENING NOTED THROUGHOUT SHIFT. LEVOPHED GTT RESUMED DURING HD BP WAS NOTED TRENDING DOWN DURING DIALYSIS, TITRATED TO OFF FOLLOWING COMPLETION OF HD AT 2200, HOWEVER AFTER CT SCAN THIS AM PT WAS NOTED HYPOTENSIVE AND LEVOPHED GTT WAS RESUMED AT 2 MCG/MIN, PT CONTINUED HYPOTENSIVE AND RATE WAS INCREASED TO 4 MCG/MIN WITHOUT NOTABLE IMPROVEMENT, TITRATED TO 10 MCG/MIN JUST PRIOR TO REPORT TO ONCOMING RN, SEE FLOW SHEET.
--- NOTE | 2018-06-30 08:20 | NUR ---
DR. JOHNSTON IN TO SEE FAMILY; PT DAUGHTER AT BEDSIDE. PLANS FOR FAMILY MEETING THIS AFTERNOON TO DISCUSS CT RESULTS.
--- NOTE | 2018-06-30 08:21 | NUR ---
LEVOPHED TITRATION PT CONTINUES TO BE HYPOTENSIVE. LEVOPHED GTT INCREASED TO 15MCG/KG/MIN. PROPOFOL REMAINS AT 10MCG/KG/MIN AND NIMBEX AT 1 MCG/KG/MIN. ZOLL PADS PLACED BACK ON PT AT THIS TIME.
--- NOTE | 2018-06-30 09:18 | NUR ---
PT. BP CONTINUES TO BE HYPOTENSIVE LEVOPHED TITRATED TO 30MCG/KG/MIN PER DR. COLEMAN AT THIS TIME VASOPRESSIN ORDERED. TITRATE DOWN ONCE VASOPRESSING ESTABLISHED.
--- NOTE | 2018-06-30 09:30 | NUR ---
DR. COLEMAN AT BEDSIDE VASOPRESSIN STARTED WITH LEVOPHED RUNNING AT 30MCG/KG/MIN
--- NOTE | 2018-06-30 09:42 | NUR ---
DR. JOHNSTON AT BEDSIDE AT THIS TIME TALKING WITH PT FAMILY. DR. COLEMAN REMAINS AT BEDSIDE. 1MG EPI PUSHED IV. 1 AMP OF BICARB PUSHED. PER DR. CHAUDHRY. AT THIS TIME FAMILY WISHES NO CPR AT THIS TIME.
--- NOTE | 2018-06-30 09:45 | NUR ---
ADDTIONAL 1M EPI PUSHED PER DR. COLEMAN. FAMILY REMAINS AT BEDSIDE. AWAITING PT GRANDSON TO VISIT. LEVOPHED REMAINS AT 30MCG/KG/MIN AND VASOPRESSIN INFUSING AT 0.04U/MIN.
--- NOTE | 2018-06-30 10:04 | NUR ---
PT GRANDSON AT BEDSIDE AT THIS TIME WITH CORRECTIONAL OFFICERS AND SECURITY., ADDITIONAL FAMILY AT BEDSIDE. SPIRITUAL CARE AND PALLIATVE CARE OFFERED.
--- NOTE | 2018-06-30 10:20 | NUR ---
PT HR NOW IN THE 50S-60S WITH CONTINUED HYPOTENSION. PT. OUT TO TALK WITH RN; REQUESTS PRESSORS BE TURNED OFF. PT HAS FAMILY SURROUNDING BED AT THIS TIME. PER DR. JARED RINALDI TO WITH DRAW CARE PER FAMILY REQUEST. 1023- ALL PRESSORS TURNED OFF 1024- PT HEART SLOWED TO WIDE COMPLEX QRS IN THE 30S THEN WENT TO [place]YSTOLE. 1025- TIME OF . NO HEART TONES NOTED UPON 1 MIN AUSCULTATION. FAMILY REMAINS AT BEDSIDE. VENT DETATCHED BY RT AT THIS TIME.
--- NOTE | 2018-06-30 10:44 | NUR ---
Spiritual care visit conducted. When I entered the patient's room, patient's blood pressure was dropping. Family was bedside, patient's Ecologist Technician, Aiden and this documentation writer led the family in singing Amazing Jacquie as patient . Family was led in praayer. Patient's family responded well and displayed evidence of being comforted. I remain available for the family.
--- NOTE | 2018-06-30 11:21 | NUR ---
INFORMATION FAXED TO DONOR LINE PER REQUEST.
--- NOTE | 2018-06-30 11:39 | NUR ---
FAMILY AWAITING DAUGHTER ARRIVAL FROM RULE TO DECIDE HOME. NURSING SUPERVISER AWARE.
== END 2018-06-30 10:25 ==
LOC: ER 09:46 → ICUW 10:59
PROVIDERS: Emergency Medicine; Internal Medicine Critical Care Medicine; Internal Medicine Nephrology; Internal Medicine Pulmonary Disease; ADMIT Family Medicine
PROC: 0W9B30Z Drainage of Left Pleural Cavity with Drainage Device, Percutaneous Approach (ICD-10-PCS; principal; 2018-06-26)
PROC: 0BH17EZ Insertion of Endotracheal Airway into Trachea, Via Natural or Artificial Opening (ICD-10-PCS; 2018-06-26)
PROC: 5A1955Z Respiratory Ventilation, Greater than 96 Consecutive Hours (ICD-10-PCS; 2018-06-26)
PROC: 3E033XZ Introduction of Vasopressor into Peripheral Vein, Percutaneous Approach (ICD-10-PCS; 2018-06-26)
PROC: 02HV33Z Insertion of Infusion Device into Superior Vena Cava, Percutaneous Approach (ICD-10-PCS; 2018-06-27)
PROC: 0W9B30Z Drainage of Left Pleural Cavity with Drainage Device, Percutaneous Approach (ICD-10-PCS; 2018-06-27)
PROC: 02HV33Z Insertion of Infusion Device into Superior Vena Cava, Percutaneous Approach (ICD-10-PCS; 2018-06-29)
PROC: 5A1D70Z Performance of Urinary Filtration, Intermittent, Less than 6 Hours Per Day (ICD-10-PCS; 2018-06-29)
DX: I21.4 Non-ST elevation (NSTEMI) myocardial infarction (principal); N17.0 Acute kidney failure with tubular necrosis; S22.5XXA Flail chest, initial encounter for closed fracture; R40.20 Unspecified coma; S27.2XXA Traumatic hemopneumothorax, initial encounter; J96.01 Acute respiratory failure with hypoxia; J69.0 Pneumonitis due to inhalation of food and vomit; I47.2 Ventricular tachycardia; J93.9 Pneumothorax, unspecified; G93.1 Anoxic brain damage, not elsewhere classified; J45.901 Unspecified asthma with (acute) exacerbation; E87.1 Hypo-osmolality and hyponatremia; R57.9 Shock, unspecified; I46.2 Cardiac arrest due to underlying cardiac condition; G40.409 Other generalized epilepsy and epileptic syndromes, not intractable, without status epilepticus; X58.XXXA Exposure to other specified factors, initial encounter; R31.9 Hematuria, unspecified; E03.9 Hypothyroidism, unspecified; E83.51 Hypocalcemia; D64.9 Anemia, unspecified; R40.2432 Glasgow coma scale score 3-8, at arrival to emergency department
CPT/HCPCS: 31500; 31720; 32551; 36415; 36556; 36600; 51702; 70450; 71045; 71275; 76770; 80047; 80048; 80053; 80069; 80185; 81001; 82248; 82330; 82550; 82803; 82947; 83605; 83735; 83880; 84100; 84439; 84443; 84481; 84484; 85014; 85018; 85025; 85379; 85384; 85610; 85730; 86316; 87040; 87070; 87077; 87086; 87186; 87205; 92950; 93005; 93010; 93306; 94002; 94003; 94640; 95819; 96361-59; 96365-59; 96375-59; 99291-25; 99292; C1751; C1752; C9113; J0282; J0461; J0610; J0696; J0881; J1815; J1940; J1953; J2060; J2930; J3010; J3370; J3480; J7030; J7040; J7050; J7060; J7070; P9046; Q2009; Q9967